=== PATIENT | male | born 1995 | race Caucasian/White ===

== ENCOUNTER 2016-12-30 00:06 | Emergency (ER) | payer BC ==
[~2016-12-30] VITALS: Ht 177.8 cm; Wt 78.2 kg
[2016-12-30 00:09] VITALS: TEMP 37; Ht 177.8 cm; Wt 78.2 kg
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
[2016-12-30] MEDS ORDERED: XYLOCAINE 1%/SOD BICARB 20 ML VIAL INFIL ONE (00:30)
[2016-12-30] MEDS ORDERED: AMOX875T PO (00:59)
[2016-12-30] MEDS ORDERED: AMOXICILLIN/CLAVULANATE TAB 875 MG TAB PO ONE (01:00)
[2016-12-30 01:29] VITALS: BP 133/73; PULSE 83; O2SAT 100
== END 2016-12-30 01:29 | disposition home or self-care (01) ==
LOC: C.EDB 00:07 → C.EDC 01:29
DX: S01.511A Laceration without foreign body of lip, initial encounter (principal); Y93.83 Activity, rough housing and horseplay; R03.0 Elevated blood-pressure reading, without diagnosis of hypertension; R40.2412 Glasgow coma scale score 13-15, at arrival to emergency department